=== PATIENT | male | born 1970 | race Caucasian/White ===

== ENCOUNTER 2019-01-17 20:58 | Observation (INO) | payer SELFPAY ==
[2019-01-17] MEDS ORDERED: Lidocaine Viscous Sol 2% 15 ml UD Cup ONE (21:29)
[2019-01-17 21:57] LABS: #Basophils 0.1 thou/uL (0.0-0.2); #Eosinphils 0.2 thou/uL (0.0-0.7); #Monocytes 0.8 thou/uL (0.11-0.59); #Neutrophils 6.8 thou/uL (1.40-6.50); %Basophils 0.6 % (0.0-1.0); %Eosinophils 2.3 % (0.0-10.0); %Lymphocytes 20.2 % (21.0-51.0); %Monocytes 7.7 % (0.0-10.0); %Neutrophils 69.2 % (42.0-75.0); Hemoglobin 14.6 g/dL (14.0-18.0); Mean Corpuscular HGB CONC 35.2 g/dL (32.0-36.0); Mean Corpuscular Hemoglobin 33.7 pg (27.0-31.0); Mean Corpuscular Volume 95.7 fL (78.0-98.0); Mean Platelet Volume 6.8 fL (7.4-10.4); Platelet Count 234 thou/uL (130-400); RBC Distribution Width 11.5 % (11.5-14.5); Red Blood Cell (RBC) Count 4.34 mill/uL (4.70-6.10); White Blood Cell (WBC) Count 9.9 thou/uL (4.8-10.8)
[2019-01-17 22:20] LABS: ALT (SGPT) 13 U/L (8-55); AST (SGOT) 14 U/L (5-34); Albumin 4.1 g/dL (3.5-5.0); Alkaline Phosphatase 76 U/L (40-110); Anion Gap 12 mmol/L (10-20); BUN (Urea Nitrogen) 6 mg/dL (8.9-20.6); Bilirubin, Total 0.7 mg/dL (0.2-1.2); Calc. Creatinine Clearance 0 mL/min (70-130); Calcium 9.2 mg/dL (7.8-10.44); Carbon Dioxide 25 mmol/L (22-29); Chloride 98 mmol/L (98-107); Estimated GFR-MDRD Greater than 90; Globulin 2.2 g/dL (2.4-3.5); Glucose 89 mg/dL (70-105); Potassium 3.6 mmol/L (3.5-5.1); Protein, Total 6.3 g/dL (6.0-8.3); Sodium 131 mmol/L (136-145)
[2019-01-17] MEDS ORDERED: Pantoprazole 40 MG VIAL IVP SCH (23:30)
[2019-01-18 01:50] VITALS: BMI 20.9
[2019-01-18] MEDS: Dextrose 5 % And 0.9 % NaCl 1,000 ML IV SCH ×2 (02:29→11:25)
[2019-01-18] MEDS ORDERED: Pantoprazole 40 MG VIAL IVP SCH (09:00)
[2019-01-18] MEDS ORDERED: PROPOFOL 200 MG/20 ML VIAL ONE (15:14)
[2019-01-18 15:33] VITALS: BP 135/68; TEMP 98.2
--- NOTE | 2019-01-18 17:07 | OP ---
DATE OF PROCEDURE: 01/18/2019 PROCEDURES PERFORMED: 1. Esophagogastroduodenoscopy with biopsy. 2. Empiric esophageal dilation with Salguero size 52-Angolan in diameter. PREOPERATIVE DIAGNOSES: Dysphagia and weight loss. POSTOPERATIVE DIAGNOSES: 1. Normal vocal cords. 2. Normal esophagus. 3. Normal fundus and cardia and gastric body edematous erythematous mucosa. 4. Normal duodenum. Overall impression, although the patient complained of dysphagia and weight loss, on endoscopy, no esophageal pathology seen. DESCRIPTION OF PROCEDURE: The patient was placed on his left lateral position and was given sedation by Anesthesia Department. A Pentax video gastroscope under direct vision passed down the oropharynx past the GE junction into the stomach and subsequently into the descending duodenum. The vocal cords appeared very healthy. Although, the patient complained of dysphagia, on endoscopy, the mucosa appeared completely normal. The esophageal lumen was wide open. The scope was passed back 2 to 3 times from the GE junction back in the posterior pharynx. We do not see any pathology. Retroflexion failed to show any pathology in fundus or cardia. In the gastric body, gastric antrum, no lesion seen. In the incisura angularis, no lesion. The pyloric channel showed an area of mild erythematous mucosa. In the duodenal bulb, descending duodenum, no pathology seen. Biopsies obtained in the gastric antrum and gastric body. The stomach decompressed and the scope removed. Due to history of dysphagia, it was decided to pass a 52-Angolan Salguero dilator. This was done without any difficulty. The dilator passed without any resistance. RECOMMENDATIONS: 1. Diet as tolerated. 2. If he still has difficulty, consider a CAT scan of the chest. Job ID: [id number]
--- NOTE | 2019-01-18 19:34 | SS ---
DATE OF ADMISSION: 01/17/2019 DATE OF DISCHARGE: 01/18/2019 REASON FOR ADMISSION: Vertigo, dysphagia. HISTORY OF PRESENTING ILLNESS: The patient gives history of having sustained a heat stroke in September. He had some left-sided weakness, slurred speech, and short-term memory loss, all of which got resolved. A month later, the patient developed trouble swallowing and it has been persisting now. He had gone to see Dr. Penaloza in [place], [place]. 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 As the patient continued to have trouble with swallowing, the patient came to emergency room. He also mentions that gravy got stuck and the water that he drank before that was coming up. All of this concerned him, hence came to emergency room. No complaints of chest pain, palpitation, PND, or orthopnea. No complaints of cough or expectoration. No history of fever. PAST MEDICAL AND SURGICAL HISTORY: History of asthma and GERD. CURRENT MEDICATION: Omeprazole 40 mg daily. ALLERGIES: NO KNOWN DRUG ALLERGIES. PERSONAL HISTORY: Smokes 1 pack a day. Does not abuse alcohol or drugs. FAMILY HISTORY: Mother is healthy. Father of unknown cancer at the age of 45. CODE STATUS: Full. 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 REVIEW OF SYSTEMS: CONSTITUTIONAL: Negative for weight loss or gain, ability to conduct usual activities. SKIN: Negative for rash, itching. EYES: Negative for double vision, pain. ENT/MOUTH: Negative for nose bleeding, neck stiffness, pain, tenderness. CARDIOVASCULAR: Negative for palpitations, dyspnea on exertion, orthopnea. RESPIRATORY: Negative for shortness of breath, wheezing, cough, hemoptysis, fever or night sweats. GASTROINTESTINAL: Negative for poor appetite, abdominal pain, heartburn, nausea , vomiting, constipation, or diarrhea. GENITOURINARY: Negative for urgency, frequency, dysuria, nocturia. MUSCULOSKELETAL: Negative for pain, swelling. NEUROLOGIC/PSYCHIATRIC: Negative for anxiety, depression. ALLERGY/IMMUNOLOGIC: Negative for skin rash, bleeding tendency. PHYSICAL EXAMINATION: GENERAL: The patient is a 48-year-old male, who is currently not in any acute distress. VITAL SIGNS: Blood pressure 136/74, pulse 66 per minute, respiratory rate 18 per minute, temperature 98.7 degrees Fahrenheit, saturating 99% on room air. NECK: Supple. No elevated JVD. HEENT: Eyes; extraocular muscles intact. Pupils are reacting to light. Oral cavity, mucous membranes are moist. No exudates or congestion. CARDIOVASCULAR SYSTEM: S1 and S2 heard, regular rhythm. RESPIRATORY: Air entry 1+ bilateral. No rales or rhonchi. ABDOMEN: Soft. Bowel sounds heard. No tenderness, rigidity, or guarding. EXTREMITIES: No peripheral edema or calf tenderness. The peripheral pulses are 2+ bilateral. No ischemic ulcerations or gangrene. CENTRAL NERVOUS SYSTEM: No gross focal deficits noted. The patient is alert, awake, and oriented well. PSYCHIATRIC SYSTEM: The patient's mood is euthymic. No hallucinations or delusions. LABORATORY DATA: The patient has had upper endoscopy done by Dr. Parker, which showed normal vocal cords, esophagus, fundus, cardia, and gastric body, and normal duodenum. There was no esophageal pathology seen. Hemoglobin and hematocrit are 14 and 41, platelet count 234, white count of 9.9. BUN 6, creatinine 0.6, bicarb 25. Liver enzymes within normal limits. Albumin is 4.1. CLINICAL IMPRESSION AND PLAN: The patient will be shortly discharged home. He has had upper endoscopy done, which has not shown any abnormalities in his esophagus to suggest dysphagia. He has had empiric dilatation of lower esophageal sphincter. He has tolerated oral solid diet with his dinner this evening. He needs to continue Protonix 40 mg twice daily for a total period of 30 days. He also needs to follow up with his primary care physician in 1 week. He has remained hemodynamically stable and will be shortly discharged home. Please note this is a same day admit and discharge under observation status. Job ID: [id number] [facility]
--- NOTE | 2019-01-19 10:19 | CON ---
DATE OF CONSULTATION: 01/18/2019 REASON FOR CONSULTATION: Dysphagia, weight loss. HISTORY OF PRESENT ILLNESS: Mr. Lucius Hansen is a 48-year-old male with history of dysphagia over the last 3 months. To begin with dysphagia was solid foods like meat and bread. The symptoms got progressively worse and right now he is having difficulty even swallowing liquids over the last 48 hours. He has had chronic acid reflux off and on. He has been taking Prilosec and Nexium also. The dysphagia started 3 months ago and he went to the ER and was told . The dysphagia started with meat products and also some bread. Swallowing is getting slowly worse. The patient went to the ER and had a CAT scan of the abdomen. He was referred to Dr. Skip Bradshaw for ENT evaluation because of dysphagia. He had a laryngoscopy by Dr. Bradshaw a week ago and was told to be normal. He was scheduled a barium swallow at that time. In the meantime, the symptoms got worse and he started having clear water and most probably drinking only liquids. He came to the ER yesterday and was hospitalized. At the time of the consultation, he appears comfortable. He is in no distress. He denies any painful swallowing. He induced weight loss of 60 pounds over the last 3 months. There is no family history of any cancer. He is a smoker and smokes a pack of cigarettes per day. He does not do his alcohol intake. No relevant history. ALLERGIES: NONE. SOCIAL HISTORY: He is . He does smoke a pack of cigarettes per day. No alcohol abuse. No history of drug abuse. MEDICAL ILLNESSES: History of asthma in the past, but does not really bother him. No hypertension. No diabetes. No heart disease. PAST SURGICAL HISTORY: None. FAMILY HISTORY: Unremarkable. MEDICATIONS: At the present time include: 1. Pantoprazole. 2. Some IV fluids. SYSTEM REVIEW: CONSTITUTIONAL: History of weight loss. No change in exercise tolerance. No history of any fever or chills. HEENT: Head; no chronic headache. Eyes; no diplopia. No impaired vision. Ears; no hearing loss. No bleeding. No discharge. Nose; no nosebleed. Throat; he has a sore throat and also dysphagia. LUNGS: No chronic coughing, hemoptysis, or dyspnea. CARDIOVASCULAR SYSTEM: No chest pain. No dyspnea, orthopnea, or PND. GI: No abdominal pain. No nausea, vomiting, but history of dysphagia, history of weight loss. No hematochezia or melena. : No dysuria, hematuria, or frequency of urination. MUSCULOSKELETAL: Not known. NEUROLOGIC: Not known. ENDOCRINE: Not known. HEMATOLOGICAL: Not known. PHYSICAL EXAMINATION: GENERAL: He appears very comfortable. He is well built, in no distress. He is awake, alert, oriented to time, place, and person. VITAL SIGNS: Afebrile, pulse is 51, blood pressure 122/57. HEENT: Conjunctivae clear. NECK: Supple. No adenitis or thyromegaly noted. CARDIOVASCULAR: First and second heart sounds are heard. LUNGS: Clear to auscultation. ABDOMEN: Soft. No organomegaly. No tenderness. No masses. EXTREMITIES: Reveal no edema. LABORATORY DATA: CBC; WBC 9900, hemoglobin 14.6, hematocrit 42.5, MCV 96.5, platelet count 234,000, polymorphs 69, lymphocytes 20, monocytes 7. Serum chemistries; normal lytes, albumin is 2.2, bilirubin 0.7, AST 14, ALT 13, alkaline phosphatase 76. CLINICAL IMPRESSION: 1. A 48-year-old male with dysphagia over the last 3 months. The weight loss is worrisome where he has lost about 60 pounds. He has history of acid reflux off and on. The dysphagia began 3 months ago and has been progressively getting worse. To begin with the dysphagia to solid food, but now he has been having difficulty even with drinking liquids over the last 48 hours. He had no painful swallowing. The patient could simply have esophageal stricture, but seems unlikely as a benign stricture does not cause this much weight loss. There is also possibility of malignancy. 2. Chronic gastroesophageal reflux. 3. Remote history of asthma. PLAN: EGD and dilation today. I had a long talk with Mr. Hansen explaining about the procedure in detail. He was explained the risks of the procedure including perforation, bleeding, etc. He fully understood this and is agreeable. I will plan for EGD later on this morning. Further recommendations depending on the EGD findings. Job ID: [id number]
== END 2019-01-18 16:55 | disposition home or self-care (01) ==
LOC: ERS 20:58 → 2SW 23:23
PROVIDERS: ADMIT Internal Medicine; ATTEND Internal Medicine
PROC: 0DB68ZX Excision of Stomach, Via Natural or Artificial Opening Endoscopic, Diagnostic (ICD-10-PCS; principal; 2019-01-18)
PROC: 0D757ZZ Dilation of Esophagus, Via Natural or Artificial Opening (ICD-10-PCS; 2019-01-18)
DX: K31.89 Other diseases of stomach and duodenum (principal); K21.9 Gastro-esophageal reflux disease without esophagitis; R13.10 Dysphagia, unspecified; R63.4 Abnormal weight loss; F17.210 Nicotine dependence, cigarettes, uncomplicated; Z79.899 Other long term (current) drug therapy
CPT/HCPCS: 80053; 85025; 88305; 88312; 96360; 96361; 96374; 96376; C9113; G0378; J2704; J7042